=== PATIENT | female | born 1995 | race African-American/Black ===

== ENCOUNTER 2017-07-24 10:04 | Emergency (ER) | payer BC, OTHER ==
[2017-07-24] MEDS ORDERED: Ibuprofen TAB* 800 MG PO ONE ×2 (10:38→10:54)
[2017-07-24] MEDS ORDERED: Acetaminophen TAB* 325 MG PO ONE (10:38)
[2017-07-24] MEDS ORDERED: Acetaminophen TAB* 325 MG ONE (10:53)
--- NOTE | 2017-07-24 14:04 | RAD ---
INDICATION: Cough COMPARISON: None TECHNIQUE: PA and lateral dual-energy views were obtained. FINDINGS: Bones/Soft Tissues: There are no acute bony findings. Cardiomediastinal: The cardiomediastinal silhouette is normal. Lungs: There are no infiltrates. Pleura: There are no pleural effusions. Other: None IMPRESSION: NO ACTIVE DISEASE.
[2017-07-24 14:50] VITALS: BP 130/64
--- NOTE | 2017-08-04 02:12 | ED ---
Kalyn Houston Thomas, scribed for Kimberly Salvador MD on 07/24/17 at 1038 . Complex/Multi-Sys Presentation - HPI Summary HPI Summary: The pt is a 22 y/o F presenting to the ED c/o a productive cough, headache, and posterior neck pain that began three days ago. She has been coughing up phlegm. The patient has treated the symptoms with Motrin, Nyquil, and Dayquil. She did not take any of these medications today. Pt additionally c/o myalgia. Pt denies N/V/D and urinary symptoms. LMP two weeks ago. - History Of Current Complaint Chief Complaint: EDUpperRespComplaint Time Seen by Provider: 07/24/17 10:26 Hx Obtained From: Patient Onset/Duration: Lasting Days - 3, Still Present Timing: Constant Severity Currently: Moderate Location: Pain At: - head, neck Aggravating Factor(s): None Alleviating Factor(s): None Associated Signs And Symptoms: Positive: Other - Myalgia, cough, headache, neck pain; NEGATIVE: N/V/D, urinary symptoms - Allergies/Home Medications Allergies/Adverse Reactions: Allergies Allergy/AdvReac Type Severity Reaction Status Date / Time No Known Allergies Allergy Verified 07/24/17 10:17 PMH/Surg Hx/FS Hx/Imm Hx Previously Healthy: Yes Endocrine/Hematology History: Denies: Hx Diabetes Cardiovascular History: Denies: Hx Hypertension Infectious Disease History: No Infectious Disease History: Denies: Traveled Outside the [place] in Last 30 Days - Family History Known Family History: Positive: Other - father develops skin abscesses - Social History Occupation: Student Alcohol Use: Occasionally Substance Use Type: Reports: None Smoking Status (MU): Never Smoked Tobacco Review of Systems Positive: Cough - productive Negative: Vomiting, Diarrhea, Nausea Positive: no symptoms reported Positive: Myalgia, Other - Neck pain Positive: Headache All Other Systems Reviewed And Are Negative: Yes Physical Exam - Summary Physical Exam Summary: VITAL SIGNS: Reviewed. GENERAL: Patient is a well-developed and nourished female who is lying comfortable in the stretcher. Patient is not in any acute respiratory distress. HEAD AND FACE: No signs of trauma. No ecchymosis, hematomas or skull depressions. No sinus tenderness. EYES: PERRLA, EOMI x 2, No injected conjunctiva, no nystagmus. EARS: Hearing grossly intact. Ear canals and tympanic membranes are within normal limits. MOUTH: Pharyngeal hyperemia without exudate. NECK: Supple, trachea is midline, no adenopathy, no JVD, no carotid bruit, no c- spine tenderness, neck with full ROM. CHEST: Symmetric, no tenderness at palpation LUNGS: Clear to auscultation bilaterally. No wheezing or crackles. CVS: Regular rate and rhythm, S1 and S2 present, no murmurs or gallops appreciated. ABDOMEN: Soft, non-tender. No signs of distention. No rebound no guarding, and no masses palpated. Bowel sounds are normal. EXTREMITIES: FROM in all major joints, no edema, no cyanosis or clubbing. NEURO: Alert and oriented x 3. No acute neurological deficits. Speech is normal and follows commands. SKIN: Dry and warm Triage Information Reviewed: Yes Vital Signs On Initial Exam: Initial Vitals Temp Pulse Resp BP Pulse Ox 99.0 F 94 16 130/85 99 07/24/17 10:17 07/24/17 10:17 07/24/17 10:17 07/24/17 10:17 07/24/17 10:17 Vital Signs Reviewed: Yes Diagnostics - Vital Signs Vital Signs Temp Pulse Resp BP Pulse Ox 07/24/17 10:17 99.0 F 94 16 130/85 99 - Laboratory Lab Statement: Any lab studies that have been ordered have been reviewed, and results considered in the medical decision making process. - Radiology CXR Xray Interpretation: No Acute Changes - No active disease. ED physician has reviewed this report and agrees. Radiology Interpretation Completed By: Radiologist Complex Multi-Symp Course/Dx Assessment/Plan: The pt is a 22 y/o F presenting to the ED c/o a productive cough, headache, and posterior neck pain that began three days ago. She has been coughing up phlegm. The patients father called and requested a CXR despite my explanation to him that it was not needed. A CXR was ordered and it is negative for acute disease. The patient is diagnosed with viral syndrome. The patient is instructed to follow up with primary care. - Diagnoses Provider Diagnoses: Viral syndrome Discharge - Discharge Plan Condition: Stable Disposition: HOME Prescriptions: Ibuprofen TAB* [Motrin TAB* 800 MG] 800 mg PO Q6H PRN #30 tab PRN Reason: Pain Patient Education Materials: Ibuprofen (By mouth), Viral Syndrome (ED) Forms: *School Release [facility] - [facility] Days Additional Instructions: Follow up with your primary care physician in three days. Return to the emergency department for any new or worsening symptoms. The documentation as recorded by the Kalyn mayes Thomas accurately reflects the service I personally performed and the decisions made by me, Kimberly Salvador MD.
== END 2017-07-24 14:49 | disposition home or self-care (01) ==
LOC: ED 10:04
DX: R05 Cough (principal); R51 Headache; B34.9 Viral infection, unspecified
CPT/HCPCS: 71020; 87502; 87651; 99282; A9270-GY